=== PATIENT | male | born 1970 | race Caucasian/White ===

== ENCOUNTER 2016-08-01 17:54 | Emergency (ER) ==
[2016-08-01 17:58] VITALS: BP 132/85; TEMP 99.4; BMI 29.5
--- NOTE | 2016-08-01 18:58 | ED.PDOC ---
General ED Provider: Dr. ROSSY CARRERA Chief Complaint: Non-specific Complaint Stated Complaint: Swollen lip; started with picking a pimple this morning Time Seen by Physician: 18:45 Mode of Arrival: Walk-In Information Source: Patient Primary Care Provider: KIRILL SANTANA Nursing and Triage Documentation Reviewed and Agree: Yes Review of Systems - Review Of Systems Constitutional: Reports: No symptoms Respiratory: Reports: No symptoms (Pt thinks short of air; O2 98%) Cardiac: Reports: No symptoms Skin: Reports: Lesions (Lower lip swelling; started PM today) All Other Systems: Reviewed and Negative Past Medical History - Past Medical History Previously Healthy: Yes Endocrine: Reports: None Cardiovascular: Reports: None Respiratory: Reports: None Hematological: Reports: None Gastrointestinal: Reports: None Genitourinary: Reports: None Neuro/Psych: Reports: None Musculoskeletal: Reports: None Cancer: Reports: None - Surgical History General Surgical History: Reports: Orthopedic - Family History Family History: Reports: Unknown - Social History Smoking Status: Former smoker Hx Substance Use: No Alcohol Screening: Occasionally Physical Exam - Physical Exam Appearance: Well-appearing Eyes: VERONICA, EOMI ENT: Ears normal, Nose normal, Oropharynx normal Neck: Supple Respiratory: Airway patent, Breath sounds clear, Breath sounds equal, Respirations nonlabored Cardiovascular: RRR, Pulses normal Skin: Warm, Dry, Normal color Neurological: Sensation intact, Motor intact Critical Care Note - Critical Care Note Total Time (mins): 10 Course - Course Vital Signs: Temp Pulse Resp BP Pulse Ox 08/01/16 17:55 99.4 F 90 20 132/85 94 L Departure - Departure Time of Disposition: 19:15 Disposition: HOME SELF-CARE Discharge Problem: Allergic reaction Qualifiers: Encounter type: initial encounter Cellulitis Qualifiers: Site of cellulitis: face Qualifier Code: (L03.211) Cellulitis of face Instructions: Cellulitis (ED) Condition: Good Pt referred to PMD for follow-up: Yes (Follow up as needed) Prescriptions: Cephalexin [Keflex] 500 mg PO Q8HR #15 capsule Allergies/Adverse Reactions: Allergies No Known Allergies Allergy (Verified 08/01/16 18:00) Home Medications: Ambulatory Orders Cephalexin [Keflex] 500 mg PO Q8HR #15 capsule 08/01/16
[2016-08-01] MEDS: DECADRON 4 MG/ML SDV IM STA (19:18)
[2016-08-01] MEDS: BENADRYL PO STA (19:19)
[2016-08-01] MEDS: KEFLEX PO STA (19:21)
== END 2016-08-01 19:37 | disposition home or self-care (01) ==
LOC: ED 17:54
DX: L03.211 Cellulitis of face (principal)
CPT/HCPCS: 96372; 99282

== ENCOUNTER 2017-08-13 10:24 | Emergency (ER) | payer OTHER ==
[2017-08-13 10:30] VITALS: BP 117/64; TEMP 97.3; BMI 33.5
--- NOTE | 2017-08-13 10:53 | ED.PDOC ---
General ED Provider: Dr. CLAUDIO UMANZOR Chief Complaint: Back Pain Stated Complaint: CC:LOW BACK PAIN. HPI; Pt was shoveling at work when he developed sudden pain rt lumbar pain. Severe pain persists in RT LS , SI region that occurs periodically wiht certain movements. Denies pain radiating into rt or lt buttocks or down either lower extremity.Drove self to ER. Time Seen by Physician: 10:50 Mode of Arrival: Walk-In Information Source: Patient Exam Limitations: No limitations Primary Care Provider: KIRILL SANTANA Nursing and Triage Documentation Reviewed and Agree: Yes Reviewed sepsis parameters & appropriate labs ordered?: Yes System Inflammatory Response Syndrome: Not Applicable Sepsis Protocol: For patient's 13 years and over: Temp is 96.8 and below OR 101 and greater Pulse >90 BPM Resp >20/minute Acutely Altered Mental Status Are patient's symptoms suggestive of a new infection, such as: -Pneumonia -Skin, Soft Tissue -Endocarditis -UTI -Bone, Joint Infection -Implantable Device -Acute Abdominal Infection -Wound Infection -Meningitis -Blood Stream Catheter Infection -Unknown Musculoskeletal Complaint Exam - Back Pain Complaint/Exam Mechanism of Injury: Reports: No known trauma (Was shoveling at work) Symptoms Are: Still present Timing: Intermittent Episodes Lasting: Minutes Initial Severity: Moderate Current Severity: Moderate Location: Reports: Discrete Character: Reports: Sharp, Aching Aggravating: Reports: Movements Alleviating: Reports: Rest, Position (stable position ) Associated Signs and Symptoms: Denies: Swelling, Redness, Bruising, Fever, Weakness, Numbness, Tingling, Abdominal pain, Flank pain, Bladder incontinence, Bowel incontinence, Weight loss, Pain with weight bearing Related History: Denies: Similar episode, Occupational injury, Previous back injury TAD Risk Factors: Reports: None AAA Risk Factors: Reports: None Cauda Equina Risk Factors: Reports: None Epidural Abcess Risk Factors: Reports: None Related Surgical History: Reports: None Focal Tenderness: Yes Paraspinal Muscle Tenderness: Yes Paraspinal Muscle Spasm: Yes Scoliosis: No Lordosis: No Kyphosis: No SLR Test: Right Negative, Left Negative Hip Motion Testing Pain: Right Negative, Left Negative Focal Weakness: Present: None Focal Sensory Loss: Present: None Gait: Present: Normal (hesitant and slow ) Differential Diagnoses: Herniated Disk, Strain, Sprain Review of Systems - Review Of Systems Constitutional: Reports: No symptoms Eyes: Reports: No symptoms Ears, Nose, Mouth, Throat: Reports: No symptoms Respiratory: Reports: No symptoms Cardiac: Reports: No symptoms GI: Reports: No symptoms : Reports: No symptoms Musculoskeletal: Reports: Back pain, Joint pain Skin: Reports: No symptoms Neurological: Reports: No symptoms Endocrine: Reports: No symptoms Hematologic/Lymphatic: Reports: No symptoms All Other Systems: Reviewed and Negative Past Medical History - Past Medical History Previously Healthy: Yes Endocrine: Reports: None Cardiovascular: Reports: None Respiratory: Reports: None Hematological: Reports: None Gastrointestinal: Reports: None Genitourinary: Reports: None Neuro/Psych: Reports: None Musculoskeletal: Reports: None Cancer: Reports: None - Surgical History General Surgical History: Reports: Orthopedic - Family History Family History: Reports: Unknown - Social History Smoking Status: Current every day smoker, Light tobacco smoker Hx Substance Use: No Alcohol Screening: Occasionally Physical Exam - Physical Exam Appearance: Well-appearing, Well-nourished Eyes: VERONICA, EOMI, Conjunctiva clear ENT: Ears normal, Nose normal, Oropharynx normal Respiratory: Airway patent, Breath sounds clear, Breath sounds equal, Respirations nonlabored Cardiovascular: RRR, Pulses normal, No rub, No murmur GI/: Soft, Nontender, No masses, Bowel sounds normal, No Organomegaly Musculoskeletal: Normal strength, ROM intact (Reduced forward flexion and Lt sidebending), No edema, No calf tenderness, Limited ROM (Focal tenderness to RT SI Joint region with restricted ROM) Skin: Warm, Dry, Normal color Neurological: Sensation intact, Motor intact, Reflexes intact, Cranial nerves intact, Alert, Oriented Psychiatric: Affect appropriate, Mood appropriate Interpretation - Radiology Interpretation Radiology Results: No acute changes Exam Interpreted: CT Scan (lumbar spine) Procedures - Additional Procedures Additional Procedures: Other (OMT to one area- Lt SI Somatic Dysfunction ) Re-Evaluation - Re-Evaluation Time of Re-Evaluation: 12:20 Status: Improved Vital Signs Stable: Yes Appearance: NAD Lungs: Clear Skin: Warm and Dry Neuro: Alert and Oriented X3 CV: RRR Additional Comments: Less pain to palpation to RT SI LS region with improved mobility Critical Care Note - Critical Care Note Total Time (mins): 0 Course - Course Orders, Labs, Meds: Orders Category Date Time Status Ketorolac Tromethamine [Toradol] MEDS 08/13/17 10:59 Stat 30 mg IM ONCE STA CT LUMBAR SPINE W/O CONTRAST Stat RADS 08/13/17 11:00 Ordered Medications Discontinued Medications Generic Name Dose Route Start Last Admin Trade Name aDrwin PRN Reason Stop Dose Admin Ketorolac Tromethamine 30 mg 08/13/17 10:59 08/13/17 11:12 Toradol IM 08/13/17 11:00 30 mg ONCE STA Administration Vital Signs: Temp Pulse Resp BP Pulse Ox 08/13/17 10:25 97.3 F L 70 20 117/64 97 Departure - Departure Time of Disposition: 12:15 Disposition: HOME SELF-CARE Discharge Problem: Low back strain, Sacro-iliac pain, Somatic dysfunction of right sacroiliac joint Instructions: Low Back Strain (ED), Lower Back Exercises (ED), Exercise Safety (ED), Core Strengthening Exercises (ED) Condition: Good Pt referred to PMD for follow-up: Yes (prn) IPMP verified?: No Additional Instructions: Take meds as directed Avoid strenuous activities Apply ice pack to area of discomfort X 2 4 hrs Then Ice alternating with warm moist heat Exercises as directed Prescriptions: Cyclobenzaprine HCl [Flexeril] 10 mg PO TID #30 tablet Ketorolac Tromethamine [Toradol] 10 mg PO Q6H #20 tablet Allergies/Adverse Reactions: Allergies No Known Allergies Allergy (Verified 08/13/17 10:30) Home Medications: Ambulatory Orders Cyclobenzaprine HCl [Flexeril] 10 mg PO TID #30 tablet 08/13/17 Ketorolac Tromethamine [Toradol] 10 mg PO Q6H #20 tablet 08/13/17 Disposition Discussed With: Patient (Post treatment to SI region pain reduced by > 90 %)
[2017-08-13] MEDS ORDERED: TORADOL IM STA (10:59)
--- NOTE | 2017-08-13 11:51 | CT ---
EXAM: CT lumbar spine without contrast. HISTORY: Right-sided low back pain. COMPARISON: None available. TECHNIQUE: Multiple axial images of the lumbar spine were obtained without intravenous contrast. Im ages were reformatted in the sagittal and coronal planes. FINDINGS: The normal curvature and alignment are maintained. Four rib bearing lumbar-type vertebral bodies noted. For the purposes of this examination the last disc space will be L5-S1 with sacraliza tion of L5 noted. Vertebral body heights are normal. Disc heights are normal save for mild loss of disc height at L3-4. No fracture or subluxation identified. Paravertebral soft tissue are without a cute abnormality. T12-L1: No neural compromise. L1-2: Broad-based disc bulge and facet arthropathy without neural compromise. L2-3: Disc osteophyte formation and facet arthropathy with flattening of the ventral thecal sac. L3-4: Disc osteophyte formation and facet arthropathy with mild central canal stenosis and left neur al foraminal narrowing. L4-5: Disc osteophyte formation and facet arthropathy with mild bilateral neural foraminal narrowing . L5-S1: Facet arthropathy with mild neural foraminal narrowing. IMPRESSION: 1. No fracture or subluxation. 2. Mild degenerative changes are
== END 2017-08-13 12:27 | disposition home or self-care (01) ==
LOC: ED 10:24
DX: S39.012A Strain of muscle, fascia and tendon of lower back, initial encounter (principal); M99.04 Segmental and somatic dysfunction of sacral region; X50.0XXA Overexertion from strenuous movement or load, initial encounter; X50.3XXA Overexertion from repetitive movements, initial encounter; Y99.0 Civilian activity done for income or pay; F17.210 Nicotine dependence, cigarettes, uncomplicated
CPT/HCPCS: 96372; 99282

== ENCOUNTER 2018-07-05 14:10 | Emergency (ER) ==
[2018-07-05 14:20] VITALS: BP 130/85; TEMP 98.3; BMI 32.2
[2018-07-05] MEDS ORDERED: DECADRON 4 MG/ML SDV IM STA (14:37)
[2018-07-05] MEDS ORDERED: BENADRYL IM STA (14:38)
--- NOTE | 2018-07-05 14:41 | ED.PDOC ---
General ED Provider: Dr. ABBY RIOS Chief Complaint: Rash Stated Complaint: rash puritic after 1 week of bactrim pt has had a wound which was packed by the oral surgeon is in good repair Time Seen by Physician: 14:11 (bp normal on arrival) Mode of Arrival: Walk-In Information Source: Patient Exam Limitations: No limitations (rash is puritic) Nursing and Triage Documentation Reviewed and Agree: Yes Does patient meet sepsis criteria?: No System Inflammatory Response Syndrome: Not Applicable Sepsis Protocol: For patient's 13 years and over: Temp is 96.8 and below OR 101 and greater Pulse >90 BPM Resp >20/minute Acutely Altered Mental Status Are patient's symptoms suggestive of a new infection, such as: -Pneumonia -Skin, Soft Tissue -Endocarditis -UTI -Bone, Joint Infection -Implantable Device -Acute Abdominal Infection -Wound Infection -Meningitis -Blood Stream Catheter Infection -Unknown Skin Complaint Exam - Skin Rash/Itching Complaint/Exam Onset/Duration: 1 day finished bactrim was in the sun Symptoms Are: Still present Initial Severity: Mild Current Severity: Mild Potential Exposures: Reports: Medicines Alleviating: Reports: None Associated Signs and Symptoms: Denies: Difficulty breathing, Fever, Chills Skin Findings: Present: Maculae Differential Diagnoses: Allergic Reaction Review of Systems - Review Of Systems Constitutional: Reports: No symptoms Eyes: Reports: No symptoms Ears, Nose, Mouth, Throat: Reports: No symptoms Respiratory: Reports: No symptoms Cardiac: Reports: No symptoms GI: Reports: No symptoms : Reports: No symptoms Musculoskeletal: Reports: No symptoms Skin: Reports: Rash (face arm chest macular puritic) Neurological: Reports: No symptoms Endocrine: Reports: No symptoms Hematologic/Lymphatic: Reports: No symptoms All Other Systems: Reviewed and Negative Past Medical History - Past Medical History Previously Healthy: Yes Endocrine: Reports: None Cardiovascular: Reports: None Respiratory: Reports: None Hematological: Reports: None Gastrointestinal: Reports: None Genitourinary: Reports: None Neuro/Psych: Reports: None Musculoskeletal: Reports: None Cancer: Reports: None - Surgical History General Surgical History: Reports: Orthopedic - Family History Family History: Reports: Unknown - Social History Smoking Status: Current every day smoker, Light tobacco smoker Hx Substance Use: No Alcohol Screening: Occasionally Physical Exam - Physical Exam Appearance: Well-appearing, No pain distress, Well-nourished Ill-appearing: Mild Pain Distress: Mild Eyes: VERONICA, EOMI, Conjunctiva clear ENT: Ears normal, Nose normal, Oropharynx normal Respiratory: Airway patent, Breath sounds clear, Breath sounds equal, Respirations nonlabored Cardiovascular: RRR, Pulses normal, No rub, No murmur GI/: Soft, Nontender, No masses, Bowel sounds normal, No Organomegaly Musculoskeletal: Normal strength, ROM intact, No edema, No calf tenderness Skin: Warm, Dry (chin has a 1 cm wound in good repair which packed with packing) Neurological: Sensation intact, Motor intact, Reflexes intact, Cranial nerves intact, Alert, Oriented Psychiatric: Affect appropriate, Mood appropriate Critical Care Note - Critical Care Note Total Time (mins): 0 Course - Course Orders, Labs, Meds: Orders Category Date Time Status Dexamethasone 4 mg/ml Inj [Decadron 4 mg/ml Sdv] MEDS 07/05/18 14:37 Stat 8 mg IM ONCE STA Diphenhydramine Inj [Benadryl] MEDS 07/05/18 14:38 Stat 25 mg IM ONCE STA Medications Discontinued Medications Generic Name Dose Route Start Last Admin Trade Name Darwin PRN Reason Stop Dose Admin Dexamethasone Sodium Phosphate 8 mg 07/05/18 14:37 Decadron 4 Mg/Ml Sdv IM 07/05/18 14:38 ONCE STA Diphenhydramine HCl 25 mg 07/05/18 14:38 Benadryl IM 07/05/18 14:39 ONCE STA Vital Signs: Temp Pulse Resp BP Pulse Ox 07/05/18 14:11 98.3 F 115 H 20 130/85 97 Departure - Departure Time of Disposition: 14:42 Disposition: HOME SELF-CARE Discharge Problem: Pruritic rash Instructions: Acute Rash (ED) Condition: Good Pt referred to PMD for follow-up: Yes IPMP verified?: No Additional Instructions: Please call your Family Physician as soon as possible to schedule a follow-up appointment.you may be allergic to sulfa meds drink water rest avoid sun Allergies/Adverse Reactions: Allergies No Known Allergies Allergy (Verified 07/05/18 14:17)
== END 2018-07-05 14:59 | disposition home or self-care (01) ==
LOC: ED 14:10
DX: L29.9 Pruritus, unspecified (principal); Z72.0 Tobacco use
CPT/HCPCS: 96372; 99282

== ENCOUNTER 2018-08-05 16:14 | Outpatient (CLI) | END 2018-08-05 16:15 | disposition home or self-care (01) | LOC: LAB 16:14 | PROVIDERS: ATTEND Family Medicine | DX: R73.03 Prediabetes (principal); Z12.5 Encounter for screening for malignant neoplasm of prostate | CPT/HCPCS: 36415 ==

== ENCOUNTER 2024-10-08 19:45 | Observation (INO) ==
[2024-10-08] MEDS: NORCO 10-325 PO STA (21:20)
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
[2024-10-08 21:34] LABS: IMMATURE GRANULOCYTE # (AUTO) 0.1 (0.0-1.0); IMMATURE GRANULOCYTE % (AUTO) 0.8 % (0.0-5.0); RDW COEFFICIENT OF VARIATION 12.5 % (11.6-14.8)
[2024-10-08] MEDS: SODIUM CHLORIDE 1,000 ML IV ONE (21:44)
[2024-10-08] MEDS: ZOSYN 4.5 GM 4.5 GM in SODIUM CHLORIDE 100ML 100 ML IV ONE (21:44)
[2024-10-08 21:48] LABS: CREATININE 1.05 mg/dL (0.60-1.10); INR 0.98 SI (0.0-3.9)
--- NOTE | 2024-10-08 21:51 | DI ---
EXAM: RIGHT KNEE 3 VIEW HISTORY: Anterior cellulitis IMPRESSION: No acute bony or articular abnormality. Minor spurring on the upper pole of the patella. Minor spurring of the medial femoral condyle. Probable subcutaneous fat edema.
[2024-10-08 22:05] LABS: ERYTHROCYTE SEDIMENTATION RATE 44 mm/hr (0-15)
[2024-10-08] MEDS ORDERED: TYLENOL PO PRN (22:10)
[2024-10-08] MEDS: PHARM CONSULT:VANCOMYCIN IV ONE TIME ORDER IV STA (22:12)
[2024-10-08] MEDS: SODIUM CHLORIDE IV ONE (22:40)
[2024-10-08] MEDS: VANCOMYCIN IV ONE (22:40)
[2024-10-09] MEDS: ANCEF 2 GM/50 ML PREMIX 2 GM/50 ML BAG IV SCH (04:42)
[2024-10-09 05:39] LABS: IMMATURE GRANULOCYTE # (AUTO) 0.1 (0.0-1.0); IMMATURE GRANULOCYTE % (AUTO) 0.9 % (0.0-5.0); RDW COEFFICIENT OF VARIATION 12.6 % (11.6-14.8)
[2024-10-09 05:40] VITALS: PULSE 75
[2024-10-09 05:52] LABS: CREATININE 0.91 mg/dL (0.60-1.10)
[2024-10-09 06:25] VITALS: BMI 36.7
[2024-10-09] MEDS: TORADOL IVP ONE (08:56)
[2024-10-09] MEDS ORDERED: VANCOMYCIN 1.5 GRAM/300 ML PREMIX 1.5 GM/300 ML BAG IV SCH (09:00)
[2024-10-09] MEDS ORDERED: MORPHINE 2 MG/ML SYRINGE IVP PRN (09:07)
[2024-10-09] MEDS: OMNIPAQUE 350 MG/ML 100ML IVP ONE (09:39)
[2024-10-09] MEDS ORDERED: ZOFRAN SDV IVP PRN (09:41)
--- NOTE | 2024-10-09 09:54 | CT ---
EXAM: CT SCAN OF THE RIGHT KNEE WITH CONTRAST HISTORY: Worsening cellulitis TECHNIQUE: Imaging of the right knee was performed following the intravenous administration of contrast. 2.5 mm thin axial images and coronal and sagittal reconstructions were obtained. Comparison 10/08/2024 plain films of the right knee. FINDINGS: No acute fractures are seen. The tibia plateau appear intact. No lytic changes are seen within the osseous structures. The distal femur appears intact. No acute abnormalities are seen within the patella. There is diffuse edema of the soft tissues of the right knee. No definite fluid collections are identified. IMPRESSION: There is diffuse edema of the soft tissues of the right knee and this may represent cellulitis. No definite abscess identified. There is no definite osteomyelitis. All CT scans are performed using dose optimization techniques as appropriate to the performed exam and include at least one of the following: Automated exposure control, adjustment of the mA and/or kV according to size, and the use of iterative reconstruction technique.
[2024-10-09] MEDS: VANCOMYCIN 1.5 GRAM/300 ML PREMIX 1.5 GM/300 ML BAG IV SCH (11:22)
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
[2024-10-09 12:08] LABS: AMPHETAMINE SCREEN,URINE POSITIVE (NEGATIVE); CANNABINOID SCREEN,URINE POSITIVE (NEGATIVE); COCAIN SCREEN,URINE NEGATIVE (NEGATIVE); METHADONE URINE SCREEN NEGATIVE (NEGATIVE); METHAMPHETAMINES SCREEN,URINE POSITIVE (NEGATIVE); OXYCODONE URINE SCREEN NEGATIVE (NEGATIVE); TRICYCLIC ANTIDEPRESSANTS URIN NEGATIVE (NEGATIVE)
[2024-10-09] MEDS: TORADOL IVP PRN (15:00)
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
[2024-10-09 16:04] VITALS: BP 144/82; RESP 20; TEMP 98.5
== END 2024-10-09 15:10 | disposition left against medical advice (07) ==
LOC: MEDSURG B 19:45 → ED 19:45 → MEDSURG B 23:47
PROVIDERS: ADMIT Hospitalist; ATTEND Nurse Practitioner Family
DX: L03.115 Cellulitis of right lower limb; Z53.20 Procedure and treatment not carried out because of patient's decision for unspecified reasons; M71.861 Other specified bursopathies, right knee